=== PATIENT | male | born 1955 | race Caucasian/White ===

== ENCOUNTER 2017-05-06 11:35 | Observation (INO) | payer MEDICARE ==
[2017-05-06] MEDS ORDERED: SODIUM CHLORIDE 0.9% 500 ML IV ONE (11:43)
[2017-05-06] MEDS ORDERED: ONDANSETRON HCL IV 4 MG/2 ML VIAL IVP ONE (11:43)
--- NOTE | 2017-05-06 11:49 | Emergency Department Record ---
History of Present Illness - General Chief Complaint: Dizziness Stated Complaint: NAUSEA AND DIZZINESS Time Seen by Provider: 05/06/17 11:43 Source: Patient Mode of Arrival: Ambulatory Limitations: No limitations - History of Present Illness Initial Comments: 61 yo male presents with nausea, lightheadedness, and sweating that started about an hour ago feeling like he could pass out. He was working in his house changing a light and the symptoms started fairly quickly. NO chest pain. He feels like he could pass out. He has a history of CAD with stent but not chest heaviness or pain. He has vaguely not felt well for about 3 days but these symptoms came on abrupt just prior to arrival. No edema. No diarrhea. No other recent changes in his health. Cardiology is Dr Arce. No changes in vision , no weakness, no changes in speech, no changes in coordination. MD Complaint: Lightheadedness -: Hour(s) Timing: Sudden onset Description: Lightheadedness History of Same: No History of Trauma: No Improves With: Rest Worsens With: Movement, Position, Exertion Associated Symptoms: Denies other symptoms - Roma Coma Scale Eye Response: (4) Open spontaneously Motor Response: (6) Obeys commands Verbal Response: (5) Oriented Holly Total: 15 - Related Data Home Medications Medication Instructions Recorded Confirmed Last Taken Aspirin 325 mg PO DAILY 05/06/17 05/06/17 05/06/17 Atorvastatin Calcium [Lipitor] 40 mg PO QHS 05/06/17 05/06/17 05/05/17 Carvedilol [Coreg] 3.125 mg PO BID 05/06/17 05/06/17 05/06/17 Cetirizine HCl [Zyrtec] 10 mg PO DAILY 05/06/17 05/06/17 05/06/17 Fluoxetine HCl [Prozac] 20 mg PO DAILY 05/06/17 05/06/17 05/06/17 Insulin Aspart [Novolog] 22 unit SQ TIDAC 05/06/17 05/06/17 05/06/17 Insulin Glargine,Hum.rec.anlog 70 unit SQ QHS 05/06/17 05/06/17 05/05/17 [Lantus] Lisinopril [Zestril] 10 mg PO DAILY 05/06/17 05/06/17 05/05/17 Multivitamin/Iron/Folic Acid 1 tab PO DAILY 05/06/17 05/06/17 05/06/17 [Centrum] Tramadol HCl [Ultram] 50 mg PO Q6H 05/06/17 05/06/17 Unknown Allergies Allergy/AdvReac Type Severity Reaction Status Date / Time Penicillins Allergy HIVES Verified 05/06/17 11:49 Review of Systems Constitutional: Denies: Chills, Fever, Malaise, Weakness Eyes: Denies: Eye discharge, Eye pain, Photophobia, Vision change ENT: Reports: Congestion. Denies: Dental pain, Epistaxis, Throat pain Respiratory: Denies: Cough, Dyspnea, Hemoptysis, Stridor, Wheezes Cardiovascular: Denies: Arrhythmia, Chest pain, Edema, Palpitations, Syncope Endocrine: Reports: Fatigue. Denies: Polydipsia, Polyuria Gastrointestinal: Reports: Abdominal pain (few occasional cramps upper abdomen) , Nausea. Denies: Constipation, Diarrhea Genitourinary: Denies: Dysuria, Frequency, Hematuria Musculoskeletal: Denies: Arthralgia, Back pain, Myalgia, Neck pain Skin: Denies: Bruising, Change in color, Rash Neurological: Reports: Vertigo. Denies: Abnormal gait, Confusion, Headache, Numbness, Paresthesias, Seizure, Tingling, Tremors, Weakness Psychiatric: Denies: Anxiety Hematological/Lymphatic: Denies: Anemia, Blood Clots, Easy bleeding, Easy bruising, Swollen glands Physical Exam - General General Appearance: Alert, Oriented x3, Cooperative, No acute distress, Other ( sweating) Limitations: No limitations - Head Head exam: Normal inspection - Eye Eye exam: Normal appearance, PERRL, EOMI. negative: Conjunctival injection, Nystagmus, Periorbital swelling, Scleral icterus - ENT ENT exam: Normal exam, Mucous membranes moist Ear exam: Normal external inspection Nasal Exam: Normal inspection Mouth exam: Normal external inspection - Neck Neck exam: Normal inspection, Full ROM. negative: Tenderness - Respiratory Respiratory exam: Normal lung sounds bilaterally. negative: Accessory muscle use, Chest wall tenderness, Decreased breath sounds, Prolonged expiratory, Respiratory distress, Rhonchi, Stridor, Wheezes - Cardiovascular Cardiovascular Exam: Regular rate, Normal rhythm, Normal heart sounds Peripheral Pulses: 2+: Radial (R), Radial (L) - GI/Abdominal GI/Abdominal exam: Soft. negative: Distended, Guarding, Rebound, Rigid, Tenderness - Rectal Rectal exam: Deferred - exam: Deferred - Extremities Extremities exam: Normal inspection, Full ROM, Normal capillary refill. negative: Pedal edema, Tenderness - Back Back exam: Reports: Normal inspection, Full ROM. Denies: Muscle spasm, Rash noted, Tenderness - Neurological Neurological exam: Alert, CN II-XII intact, Normal gait, Oriented X3. negative : Altered, Motor sensory deficit - Psychiatric Psychiatric exam: Normal affect, Normal mood - Skin Skin exam: Diaphoretic, Intact, Normal color, Warm Course - Reevaluation(s) Reevaluation #1: EKG 11:58 NSR rate 79, intervals normal, axis normal, ST normal Accu check is 151 05/06/17 12:06 05/06/17 12:13 The CBC was reviewed. WBC is 13 05/06/17 12:27 The patient is getting improvement with rest, IVF and Zofran. The HCT scan was negative for acute changes 05/06/17 12:38 No acute changes on the CMP No acute changes on the Troponin I discussed further observation in the hospital given his episode of nearly passing out, sweating, nausea 05/06/17 13:19 The admission was discussed with Apoorva Murphy We discussed the symptoms of profuse diaphesis with lightheadedness The plan is to admit for serial enzymes, carotid dopplers, Monitor rhythm Medical Decision Making - Lab Data Result diagrams: 05/06/17 12:00 05/06/17 12:00 Disposition Disposition: Admit Clinical Impression: Diaphoresis, Near syncope Disposition: Still a Patient at [facility] Decision to Admit: Admit from ER Decision to Admit Date: 05/06/17 Decision to Admit Time: 12:41 Condition: (1) Good Time of Disposition: 12:41 Quality - Quality Measures Quality Measures: N/A - Blood Pressure Screening Does Patient Have Any of the Following: Active Dx of HTN Blood Pressure Classification: Pre-Hypertensive BP Reading Systolic Measurement: 123 Diastolic Measurement: 75 Screening for High Blood Pressure: Patient Exclusion, Hx of HTN [[id number]] Pre-Hypertensive Follow-up Interventions: Referral to alternative/primary care provider.
[2017-05-06 12:10] LABS: BASO % 0.8 % (0-6); EOS % 3.9 % (0-6); GRAN % 60.4 % (47-80); HEMATOCRIT 45.6 % (42.0-52.0); HEMOGLOBIN 15.8 gm/dl (14.0-18.0); MEAN CELL VOLUME 85.9 fl (81-97); MEAN CORPUSCULAR HEMOGLOBIN 29.8 pg (27-33); MEAN CORPUSCULAR HGB CONC 34.6 g/dl (32-36); MONO % 9.9 % (0-9); PLATELET COUNT 342 K/uL (130-400); RED BLOOD COUNT 5.31 M/uL (4.40-5.70); RED CELL DISTRIBUTION WIDTH 13.1 % (11.5-14.5)
[2017-05-06 12:21] LABS: INR 0.94; PARTIAL THROMBOPLASTIN TIME 24.7 SECONDS (24.5-39.1); PROTHROMBIN TIME (PATIENT) 10.2 SECONDS (9.5-12.1)
[2017-05-06 12:32] LABS: ALB/GLOB RATIO 1.1 (1.1-1.8); ALBUMIN 4.1 g/dL (4.0-5.0); ALKALINE PHOSPHATASE 101 U/L (40-129); ALT/SGPT 31 U/L (<41); AST/SGOT 26 U/L (10.0-50.0); BLOOD UREA NITROGEN 17 mg/dL (8-23); EST GLOMERULAR FILTRATION RATE > 60 mL/min; GLUCOSE,RANDOM 158 mg/dL (74-109); TOTAL PROTEIN 7.8 g/dL (6.6-8.7)
[2017-05-06] MEDS ORDERED: TRAMADOL HCL 50 MG TABLET PO PRN (13:18)
--- NOTE | 2017-05-06 13:40 | CT SCAN REPORT ---
EXAM: HEAD CT WITHOUT CONTRAST HISTORY: ACUTE VERTIGO, VOMITING, WEAKNESS BEGINNING THIS MORNING. TECHNIQUE: Contiguous axial images from the cerebral convexities to the foramen magnum were obtained without contrast. Comparison: None. Encounter: Initial. Hand dominance: Right. FINDINGS: Mild generalized atrophy of the brain. No acute intracranial hemorrhage, mass effect, or midline shift. no CT evidence of acute infarct. The ventricles, basal cisterns and sulci are within normal limits. The osseous structures, soft tissues and paranasal sinuses are unremarkable. IMPRESSION: NO ACUTE INTRACRANIAL PROCESS. JOB NUMBER: [id number] [facility]
[2017-05-06] MEDS: NOVOLOG FLEXPEN (INSULIN ASPART) 100 UNITS/ML SQ SCH (17:24)
[2017-05-06] MEDS ORDERED: LEVEMIR FLEXTOUCH 100 UNIT/ML INSULIN PEN SQ SCH (22:00)
[2017-05-06] MEDS ORDERED: ATORVASTATIN 20 MG TABLET PO SCH (22:00)
[2017-05-06] MEDS: CARVEDILOL 3.125 MG TABLET PO SCH (22:12)
--- NOTE | 2017-05-07 07:17 | US CAROTID DOPPLER REPORT ---
EXAM: BILATERAL CAROTID DOPPLER ULTRASOUND HISTORY: FEELING FAINT TODAY. TECHNIQUE: Transverse and longitudinal sonographic images of the cervical portions of the bilateral carotid arteries was performed. Comparison: None. FINDINGS: Imaging over the carotid arteries shows mild atheromatous plaque formation associated with the right carotid bifurcation and more moderate atheromatous plaque formation of the left carotid bifurcation. No visible areas of severe stenosis. Doppler and spectral analysis with color flow was utilized. Normal biphasic waveforms bilaterally. Velocities are as follows (in peak systolic velocity): Right ICA: 108 cm/s Right CCA: 91 cm/s Right ECA: 105 cm/s Right Vertebral Artery: 39 cm/s Right ICA/CCA ratio: 1.2 Left ICA: 63 cm/s Left CCA: 58 cm/s Left ECA: 150 cm/s Left Vertebral Artery: 55 cm/s Left ICA/CCA ratio: 1.1 IMPRESSION: FINDINGS CORRESPOND TO LESS THAN 50% LUMINAL NARROWING OF THE INTERNAL CAROTID ARTERIES BILATERALLY. MILD ATHEROMATOUS PLAQUE FORMATION ON THE RIGHT WITH MILD TO MODERATE ON THE LEFT. JOB NUMBER: [id number] [facility]
--- NOTE | 2017-05-07 09:23 | History & Physical ---
History of Present Illness - Date of Service Date of Service for History & Physical: 05/07/17 - History of Present Illness Admitting Diagnosis: Near syncope, diarphoresis History of Present Illness: Mr. Dixon is a 61 y/o male who presents with complaint of dizziness while putting up a light bulb at home yesterday. The patient says that he was on a ladder and suddenly became dizzy, feeling nauseated causing him to vomit several times and subsequently having sweating and diarrhea. He says that he felt better after vomiting. He has a history of DC with stent in 2013 but denies and chest pain, shortness of breath, headache or loss of consciounsess. He was able to drive into the hospital and did not experience any symptoms while driving. On arrival to hospital stroke/TIA workup was initiated which did not reveal an significant findings. Troponins have remained negative, ECG shows sinus rhythm and CT head w/o contrast is negative. The patient is admitted for observation on telemetry and completion of workup. Cardiology has been consulted from the ED for recommendations. Travel Screening - Travel/Exposure Within Last 30 Days Have you traveled within the last 30 days?: No - Travel/Exposure Within Last Year Have you traveled outside the [place] in the last year?: No - Additonal Travel Details Have you been exposed to anyone with a communicable illness?: No Review of Systems Constitutional: Denies: Chills, Fever, Malaise, Weakness Eyes: Denies: Eye discharge, Eye pain, Photophobia, Vision change ENT: Reports: Congestion. Denies: Dental pain, Epistaxis, Throat pain Respiratory: Denies: Cough, Dyspnea, Hemoptysis, Stridor, Wheezes Cardiovascular: Denies: Arrhythmia, Chest pain, Edema, Palpitations, Syncope Endocrine: Reports: Fatigue. Denies: Polydipsia, Polyuria Gastrointestinal: Reports: Abdominal pain (few occasional cramps upper abdomen) , Nausea. Denies: Constipation, Diarrhea Genitourinary: Denies: Dysuria, Frequency, Hematuria Musculoskeletal: Denies: Arthralgia, Back pain, Myalgia, Neck pain Skin: Denies: Bruising, Change in color, Rash Neurological: Reports: Vertigo. Denies: Abnormal gait, Confusion, Headache, Numbness, Paresthesias, Seizure, Tingling, Tremors, Weakness Psychiatric: Denies: Anxiety Hematological/Lymphatic: Denies: Anemia, Blood Clots, Easy bleeding, Easy bruising, Swollen glands Past Medical History - SOCIAL HISTORY Smoking Status: Former smoker Alcohol Use: None Drug Use: Occasional Drug Use Detail:: Marijuana - RESPIRATORY Hx Respiratory Disorders: Yes Hx Asthma: No Hx Bronchitis: No Hx COPD: No Hx Dyspnea: No Hx Pneumonia: No Hx Pulmonary Embolism: No Hx Sleep Apnea: Yes Hx Tuberculosis: No Hx of CPAP: Yes - CARDIOVASCULAR Hx Cardio Disorders: Yes Hx Abnormal EKG: Yes Hx Cardiac Cath: No Hx Chest Pain: Yes Hx CHF: No Hx Deep Vein Thrombosis: No Hx Edema: No Hx Heart Attack: Yes Hx Hypertension: Yes Hx Hypotension: No Hx Irregular Heartbeat: No Hx Palpitations: No Hx Pacemaker/Defib: No Hx Vascular Disease: No - NEURO Hx Neuro Disorders: No - GI Hx GI Disorders: Yes Hx Abdominal Pain: No Hx Celiac Disease: No Hx Crohn's Disease: No Hx Diverticulitis: No Hx GI Bleed: No Hx Reflux: No Hx Hepatitis/Jaundice: No Hx Hiatal Hernia: No Hx Irritable Bowel: No Hx Liver Disease: No Hx Nausea/Vomiting: Yes Hx Obstructive Bowel: No Hx Pancreatitis: No Hx Rectal Bleeding: No Hx Ulcer: Yes Hx Wt Loss/Wt Gain: No Hx of Polyps: No Comment:: hepatitis B - Hx Genitourinary Disorders: No - ENDOCRINE Hx Endocrine Disorders: Yes Hx Diabetes: Yes (type 2) Hx Thyroid Disease: No - MUSCULOSKELETAL Hx Musculoskeletal Disorders: Yes Hx Arthritis: Yes Hx Back Injury: No Hx Fibromyalgia: Yes Hx Gout: No Hx Musculoskeletal Disease: No Hx Osteoporosis: No - PSYCH Hx Psych Problems: No - HEMATOLOGY/ONCOLOGY Hx Hematology/Oncology Disorders: No Family Medical History Any Significant Family History?: No H&P Meds/Allergies - Allergies Allergies: Allergies Allergy/AdvReac Type Severity Reaction Status Date / Time Penicillins Allergy HIVES Verified 05/06/17 11:49 - Home Medications Home Medications Medication Instructions Recorded Confirmed Last Taken Aspirin 325 mg PO DAILY 05/06/17 05/06/17 05/06/17 Atorvastatin Calcium [Lipitor] 40 mg PO QHS 05/06/17 05/06/17 05/05/17 Carvedilol [Coreg] 3.125 mg PO BID 05/06/17 05/06/17 05/06/17 Cetirizine HCl [Zyrtec] 10 mg PO DAILY 05/06/17 05/06/17 05/06/17 Cholecalciferol (Vitamin D3) 4,000 units PO BID 05/06/17 05/06/17 05/06/17 [Vitamin D3] Fluoxetine HCl [Prozac] 20 mg PO DAILY 05/06/17 05/06/17 05/06/17 Insulin Aspart [Novolog] 22 unit SQ TIDAC 05/06/17 05/06/17 05/06/17 Insulin Glargine,Hum.rec.anlog 70 unit SQ QHS 05/06/17 05/06/17 05/05/17 [Lantus] Lisinopril [Zestril] 10 mg PO DAILY 05/06/17 05/06/17 05/05/17 Multivitamin/Iron/Folic Acid 1 tab PO DAILY 05/06/17 05/06/17 05/06/17 [Centrum] Tramadol HCl [Ultram] 50 mg PO Q6H PRN 05/06/17 05/06/17 Unknown - Active Medications Active Medications: Current Medications Aspirin (Ecotrin (Ec)) 325 mg PO DAILY [facility] Atorvastatin Calcium (Lipitor) 40 mg PO QHS [facility] Last Admin: 05/06/17 22:11 Dose: 40 mg Carvedilol (Coreg) 3.125 mg PO BID [facility] Last Admin: 05/06/17 22:12 Dose: 3.125 mg Fluoxetine HCl (Prozac) 20 mg PO DAILY [facility] Insulin Aspart (Novolog Flexpen) 22 unit SQ TIDINS [facility] Last Admin: 05/06/17 17:24 Dose: Not Given Insulin Detemir (Levemir Flextouch) 70 unit SQ QHS [facility] Last Admin: 05/06/17 22:13 Dose: 70 unit Lisinopril (Zestril) 10 mg PO DAILY [facility] Loratadine (Claritin) 10 mg PO DAILY [facility] Tramadol HCl (Ultram) 50 mg PO Q6H PRN PRN Reason: Pain - General Physical Exam - Vital Signs Vital Signs: Vital Signs - Last 24 Hrs Temp Pulse Pulse Pulse Resp BP BP 05/07/17 09:00 99.1 F 89 18 121/83 05/07/17 05:30 98.0 F 78 20 133/71 05/06/17 23:00 97.7 F 74 20 130/70 05/06/17 19:18 98.8 F 82 20 137/72 05/06/17 15:18 98.0 F 78 18 134/71 05/06/17 13:47 62 17 05/06/17 13:17 76 20 123/75 05/06/17 13:15 97.7 F 81 18 135/72 Pulse Ox 05/07/17 09:00 96 05/07/17 05:30 98 05/06/17 23:00 97 05/06/17 19:18 96 05/06/17 15:18 96 05/06/17 13:47 05/06/17 13:17 97 05/06/17 13:15 94 L - General General Appearance: Alert, Oriented x3, Cooperative, No acute distress, Other ( sweating) Limitations: No limitations - Head Head exam: Atraumatic, Normocephalic, Normal inspection - Eye Eye exam: Normal appearance, PERRL, EOMI. negative: Conjunctival injection, Nystagmus, Periorbital swelling, Scleral icterus - ENT ENT exam: Normal exam, Mucous membranes moist Ear exam: Normal external inspection Nasal Exam: Normal inspection Mouth exam: Normal external inspection - Neck Neck exam: Normal inspection, Full ROM. negative: Tenderness - Respiratory Respiratory exam: Normal lung sounds bilaterally. negative: Accessory muscle use, Chest wall tenderness, Decreased breath sounds, Prolonged expiratory, Respiratory distress, Rhonchi, Stridor, Wheezes - Cardiovascular Cardiovascular Exam: Regular rate, Normal rhythm, Normal heart sounds, Systolic murmur ( - murmur over right 2nd intercostal space. ) Peripheral Pulses: 2+: Radial (R), Radial (L), Dorsalis Pedis (R), Dorsalis Pedis (L) - GI/Abdominal GI/Abdominal exam: Soft. negative: Distended, Guarding, Rebound, Rigid, Tenderness - Rectal Rectal exam: Deferred - exam: Deferred - Extremities Extremities exam: Normal inspection, Full ROM, Normal capillary refill. negative: Pedal edema, Tenderness - Back Back exam: Reports: Normal inspection, Full ROM. Denies: Muscle spasm, Rash noted, Tenderness - Neurological Neurological exam: Alert, CN II-XII intact, Normal gait, Oriented X3. negative : Altered, Motor sensory deficit - Psychiatric Psychiatric exam: Normal affect, Normal mood - Skin Skin exam: Diaphoretic, Intact, Normal color, Warm Results - Labs Result Diagrams: 05/06/17 12:00 05/06/17 12:00 Labs Last 24 Hours: Laboratory Results - last 24 hr 05/06/17 05/06/17 05/07/17 16:47 19:55 00:04 POC Glucose 131 H 224 H Troponin T < 0.010 05/07/17 05/07/17 04:07 07:30 POC Glucose 178 H Troponin T < 0.010 VTE H&P Assessment - Risk for VTE Risk for VTE: Yes Risk Level: Moderate Risk Assessment Date: 05/07/17 Risk Assessment Time: 10:10 VTE Orders Placed or Will Be Placed: Yes Plan - Detailed Diagnosis and Plan (1) Near syncope Plan: - presented with complaint of dizziness and diaphoresis. Likely neurocardiogenic. - troponins negative x 2, no electrolyte abnormalities. Bolused 1 liter Nacl 0.9% - ECG - NSR, tele - no abnormal rhythms over night, carotid duplex - <50% obstruction bilaterally, CT head w/ contrast negative. - pending 2D echo which will likely be done outpatient tomorrow. Cardiology consult pending. Current Visit: Yes Status: Acute Base Code: R55 - SYNCOPE AND COLLAPSE (2) Diabetes mellitus type II, controlled Plan: - curently takes Metfromin 500mg ER QD at home. - glucose trend 131 --> 158 --> 178, Novolog 22 units TIDAC ordered - accuchecks QID dosing, diabetic diet ordered. - on ASA 81 mg, Linisopril 10mg QD, Atrovastatin 40mg QD Current Visit: Yes Status: Acute Base Code: E11.9 - TYPE 2 DIABETES MELLITUS WITHOUT COMPLICATIONS (3) History of coronary artery stent placement Plan: - EGK: NSR, troponins negative x 2. Tele monitoring - no abnormal runs. - resumed home doses of Coreg 3.125mg BID, ASA 81mg, Atorvastatin 40mg, Lisinopril 10mg QD - 2D echo as outpatient, Cardiology consult pending. Current Visit: Yes Status: Acute Base Code: Z95.5 - PRESENCE OF CORONARY ANGIOPLASTY IMPLANT AND GRAFT (4) DVT prophylaxis Plan: - Enoxaparin 40mg QD Current Visit: Yes Status: Acute Base Code: [id number] - (5) Full code status Plan: FULL CODE Current Visit: Yes Status: Acute Base Code: Z78.9 - OTHER SPECIFIED HEALTH STATUS - Disposition D/C today after consult with cardiology. 2D echo to be arranged outpatient.
[2017-05-07] MEDS ORDERED: FLUOXETINE HCL 20 MG CAPSULE PO SCH (10:00)
[2017-05-07] MEDS ORDERED: LORATADINE 10 MG TABLET PO SCH (10:00)
[2017-05-07] MEDS ORDERED: LISINOPRIL 10 MG TABLET PO SCH (10:00)
[2017-05-07] MEDS ORDERED: ASPIRIN 325 MG TAB ENTERIC-COATED PO SCH (10:00)
[2017-05-07] MEDS: CARVEDILOL 3.125 MG TABLET PO SCH (10:47)
[2017-05-07] MEDS: NOVOLOG FLEXPEN (INSULIN ASPART) 100 UNITS/ML SQ SCH (10:48)
[2017-05-07] MEDS ORDERED: FLU VAC QS 2017-18 (INPT, 6MO+) 60MCG/0.5ML IM ONE (10:49)
--- NOTE | 2017-05-07 10:56 | Discharge Summary ---
Providers Date of admission: 05/06/17 13:05 Attending physician: Gus Alonzo Primary care physician: ANIL RAO D.O. Physical Exam - Vital Signs Vital Signs: Vital Signs - Last 24 Hrs Temp Pulse Pulse Pulse Resp BP BP 05/07/17 09:00 99.1 F 89 18 121/83 05/07/17 05:30 98.0 F 78 20 133/71 05/06/17 23:00 97.7 F 74 20 130/70 05/06/17 19:18 98.8 F 82 20 137/72 05/06/17 15:18 98.0 F 78 18 134/71 05/06/17 13:47 62 17 05/06/17 13:17 76 20 123/75 05/06/17 13:15 97.7 F 81 18 135/72 Pulse Ox 05/07/17 09:00 96 05/07/17 05:30 98 05/06/17 23:00 97 05/06/17 19:18 96 05/06/17 15:18 96 05/06/17 13:47 05/06/17 13:17 97 05/06/17 13:15 94 L - General General Appearance: Alert, Oriented x3, Cooperative, No acute distress, Other ( sweating) Limitations: No limitations - Head Head exam: Atraumatic, Normocephalic, Normal inspection - Eye Eye exam: Normal appearance, PERRL, EOMI. negative: Conjunctival injection, Nystagmus, Periorbital swelling, Scleral icterus - ENT ENT exam: Normal exam, Mucous membranes moist Ear exam: Normal external inspection Nasal Exam: Normal inspection Mouth exam: Normal external inspection - Neck Neck exam: Normal inspection, Full ROM. negative: Tenderness - Respiratory Respiratory exam: Normal lung sounds bilaterally. negative: Accessory muscle use, Chest wall tenderness, Decreased breath sounds, Prolonged expiratory, Respiratory distress, Rhonchi, Stridor, Wheezes - Cardiovascular Cardiovascular Exam: Regular rate, Normal rhythm, Normal heart sounds, Systolic murmur ( - murmur over right 2nd intercostal space. ) Peripheral Pulses: 2+: Radial (R), Radial (L), Dorsalis Pedis (R), Dorsalis Pedis (L) - GI/Abdominal GI/Abdominal exam: Soft. negative: Distended, Guarding, Rebound, Rigid, Tenderness - Rectal Rectal exam: Deferred - exam: Deferred - Extremities Extremities exam: Normal inspection, Full ROM, Normal capillary refill. negative: Pedal edema, Tenderness - Back Back exam: Reports: Normal inspection, Full ROM. Denies: Muscle spasm, Rash noted, Tenderness - Neurological Neurological exam: Alert, CN II-XII intact, Normal gait, Oriented X3. negative : Altered, Motor sensory deficit - Psychiatric Psychiatric exam: Normal affect, Normal mood - Skin Skin exam: Diaphoretic, Intact, Normal color, Warm Hospitalization - Hospitalization Admission Diagnosis: Near syncope, diarphoresis - Problem List/Discharge Diagnosis (1) Near syncope Plan: - presented with complaint of dizziness and diaphoresis. Likely neurocardiogenic. - troponins negative x 2, no electrolyte abnormalities. Bolused 1 liter Nacl 0.9% - ECG - NSR, tele - no abnormal rhythms over night, carotid duplex - <50% obstruction bilaterally, CT head w/ contrast negative. - pending 2D echo which will likely be done outpatient tomorrow. Cardiology consult pending. Current Visit: Yes Status: Acute Base Code: R55 - SYNCOPE AND COLLAPSE (2) Diabetes mellitus type II, controlled Plan: - curently takes Metfromin 500mg ER QD at home. - glucose trend 131 --> 158 --> 178, Novolog 22 units TIDAC ordered - accuchecks QID dosing, diabetic diet ordered. - on ASA 81 mg, Linisopril 10mg QD, Atrovastatin 40mg QD Current Visit: Yes Status: Acute Base Code: E11.9 - TYPE 2 DIABETES MELLITUS WITHOUT COMPLICATIONS (3) History of coronary artery stent placement Plan: - EGK: NSR, troponins negative x 2. Tele monitoring - no abnormal runs. - resumed home doses of Coreg 3.125mg BID, ASA 81mg, Atorvastatin 40mg, Lisinopril 10mg QD - 2D echo as outpatient, Cardiology consult pending. Current Visit: Yes Status: Acute Base Code: Z95.5 - PRESENCE OF CORONARY ANGIOPLASTY IMPLANT AND GRAFT (4) DVT prophylaxis Plan: - Enoxaparin 40mg QD Current Visit: Yes Status: Acute Base Code: [id number] - (5) Full code status Plan: FULL CODE Current Visit: Yes Status: Acute Base Code: Z78.9 - OTHER SPECIFIED HEALTH STATUS - Disposition D/C today after consult with cardiology. 2D echo to be arranged outpatient. - Hospitalization Course Hospital Course: Mr. Dixon is a 61 y/o male who presents with complaint of dizziness while putting up a light bulb at home yesterday. The patient says that he was on a ladder and suddenly became dizzy, feeling nauseated causing him to vomit several times and subsequently having sweating and diarrhea. He says that he felt better after vomiting. He has a history of [place] with stent in 2013 but denies and chest pain, shortness of breath, headache or loss of consciounsess. He was able to drive into the hospital and did not experience any symptoms while driving. On arrival to hospital stroke/TIA workup was initiated which did not reveal an significant findings. Troponins have remained negative, ECG shows sinus rhythm and CT head w/o contrast is negative. The patient is admitted for observation on telemetry and completion of workup. Cardiology has been consulted and recommendation is for outpatient workup including stress echo. No further inpatient workup was required. Abnormal Labs: Abnormal Lab Results 05/06/17 05/07/17 05/07/17 Range/Units 16:47 00:04 07:30 POC Glucose 131 H 224 H 178 H (70-110) mg/dL Condition at Discharge: (1) Good Discharge Medications - Discharge Medications Home Medications: Ambulatory Orders Aspirin 325 mg PO DAILY 05/06/17 [Last Taken 05/06/17] Atorvastatin Calcium [Lipitor] 40 mg PO QHS 05/06/17 [Last Taken 05/05/17] Carvedilol [Coreg] 3.125 mg PO BID 05/06/17 [Last Taken 05/06/17] Cetirizine HCl [Zyrtec] 10 mg PO DAILY 05/06/17 [Last Taken 05/06/17] Cholecalciferol (Vitamin D3) [Vitamin D3] 4,000 units PO BID 05/06/17 [Last Taken 05/06/17] Fluoxetine HCl [Prozac] 20 mg PO DAILY 05/06/17 [Last Taken 05/06/17] Insulin Aspart [Novolog] 22 unit SQ TIDAC 05/06/17 [Last Taken 05/06/17] Insulin Glargine,Hum.rec.anlog [Lantus] 70 unit SQ QHS 05/06/17 [Last Taken 12/14] Lisinopril [Zestril] 10 mg PO DAILY 05/06/17 [Last Taken 05/05/17] Multivitamin/Iron/Folic Acid [Centrum] 1 tab PO DAILY 05/06/17 [Last Taken 05/06] Tramadol HCl [Ultram] 50 mg PO Q6H PRN 05/06/17 [Last Taken Unknown] Metformin ER HCl [Glucophage Xr] 500 mg PO DAILY 05/07/17 [Last Taken Unknown] Discharge Plan - Discharge Instructions Activity at Discharge: Resume Usual Activities As Tolerated Diet at Discharge: Diabetic Diet Quality Measures - Quality Measures Quality Measures: Coronary Artery Disease: Antiplatelet Therapy, Documentation of Current Medications in Medical Record, Screening for High Blood Pressure and F/U Documented - Current Medications Quality Measure: Measure #130: Documentation of Current Medications Documentation of Current Medications: <Current Medications Documented/Reviewed> [G8427] - Blood Pressure Screening Quality Measure: Screening for High Blood Pressure and Follow-Up Documented Does Patient Have Any of the Following: Active Dx of HTN Blood Pressure Classification: Pre-Hypertensive BP Reading Systolic Measurement: 123 Diastolic Measurement: 75 Screening for High Blood Pressure: Patient Exclusion, Hx of HTN [G9744] - Coronary Artery Disease Quality Measure: Measure #6: Coronary Artery Disease (CAD) Antiplatelet Therapy: <ASA or clopidogrel prescribed> [4086F] - Elder Abuse Suspicion Index EASI Reference Information: Toyin CANSECO, Kylie C, José Miguel D, Carl Monterroso.Development and validation of a tool to assist physicians identification of elder abuse: The Elder Abuse Suspicion Index (EASI ). Journal of Elder Abuse and Neglect, 2008; 20 (3): 276-300.
--- NOTE | 2017-05-07 15:24 | Medical Records Consult ---
DATE OF CONSULTATION: 05/07/2017 HISTORY OF PRESENT ILLNESS: Patient is a 61-year-old white male who was admitted to the emergency room yesterday after presenting with sudden onset of nausea, lightheadedness, and diaphoresis associated with vomiting x2. He was lightheaded. He did not actually pass out. At the time, he was cleaning, doing light housework. Denied any chest pain. He has had sinus congestion for the last several days with a lot of postnasal drip, which causes him to gag and become nauseated as a result. He has not felt well for the last 3 days. Denied any history of fever, chills, diarrhea, emesis, melena, or hematochezia. Since admission, EKGs have remained normal. Enzymes were negative for infarction. When examined, he says he is back to his normal self. He has been up to the bathroom and has had no further nausea or vomiting. He does have a history of known coronary artery disease, status post stenting to his LAD in 2013. Symptoms at that time consisted of substernal discomfort with radiation up into his jaw and down his left arm. None of that has been recently or occurred since his stenting. He had a nuclear stress test in 2013, which did not show any ischemia. He was hospitalized in May 2014 at [facility] with no signs of cardiac issue. He did undergo a transesophageal echo, which showed a probable bicuspid valve. He was last seen in our office in August 2015 for preoperative evaluation prior to gallbladder surgery. He underwent the gallbladder surgery without any problems His risk factors include diabetes mellitus, hypertension, dyslipidemia. PAST MEDICAL HISTORY: As outlined in the HPI. PAST SURGICAL HISTORY: Arm surgery, fistula repair, knee surgery, rhizotomy, tonsillectomy, recent cholecystectomy. CURRENT MEDICATIONS: Medications in our records include metformin 1000 mg b.i.d., aspirin 325 mg a day, insulin to scale, atorvastatin 40 mg a day, Farxiga 10 mg a day, carvedilol 3.125 mg b.i.d., Victoza injections, omeprazole 40 mg p.r.n., Cymbalta 60 mg a day. SOCIAL HISTORY: Former smoker. Does not exercise regularly. Has a high school diploma. . FAMILY HISTORY: Father and mother heart disease. Father has diabetes. There is heart disease in 1 brother, hepatitis in 1 sister. REVIEW OF SYSTEMS: A 10-point review of systems is reviewed. Pertinent positives included in HPI, otherwise negative. He does have a history of chronic diabetic skin lesions. PHYSICAL EXAMINATION: GENERAL: Obese white male sitting in bed, in no acute distress. VITAL SIGNS: Blood pressure 130/71. Pulse 90. Respiratory rate 20. Temp 98.5. HEENT: Normocephalic, atraumatic. Lids, conjunctivae, and sclerae are clear. Pupils equal, round, and reactive to light and accommodation. EOMs are intact. Buccal mucosa is pink and moist. Uvula midline upon retraction. NECK: Thick. There is no thyromegaly. There are bilateral carotid bruits versus transmitted heart murmur. CHEST: Increased A/P diameter. Clear to auscultation and percussion. CARDIOVASCULAR: Very distant heart sounds. S1 greatest at the apex. There is actually no 2nd heart sound. There is a grade 1 systolic ejection murmur heard best along the left sternal border, right 2nd intercostal space, transmitted slightly into the suprasternal notch. There are no diastolic murmurs, lists, gallops, or heaves. ABDOMEN: Soft. There are no masses or tenderness. GENITORECTAL: Deferred. EXTREMITIES: Pulses are 2+ over 4. There is no cyanosis, edema, or clubbing. NEUROLOGIC: Cranial nerves 2 through 12 intact. Sensation is intact. Patient is oriented to person, place, and time. INTEGUMENT: He has small skin ulcerations on his arms. LABORATORY DATA: EKG shows sinus rhythm, no acute changes. Troponins are normal. IMPRESSION: 1. Probable acute GI disorder, gastritis. Doubt this is cardiac related. 2. Atherosclerotic cardiovascular disease status post previous stenting to his LAD. 3. Dyslipidemia. 4. Insulin-dependent diabetes mellitus. 5. Hypertension. 6. GERD. 7. History of bicuspid aortic valve (had a transesophageal echo 2013 confirming the same). 8. Carotid bruits versus transmitted heart murmur. PLAN: From my perspective, he can be discharged to the hospital. He needs to have carotid ultrasound done as well as a cardiac stress test. Follow up with Dr. Arce, who sees him regularly in [facility]. I did advise him to return to the emergency room if his symptoms should recur. [facility] CENTERJose
== END 2017-05-07 12:35 | disposition home or self-care (01) ==
LOC: ER 11:35 → MEDSURG 13:05
PROVIDERS: ADMIT Internal Medicine; ATTEND Internal Medicine
DX: R55 Syncope and collapse (principal); I10 Essential (primary) hypertension; E78.5 Hyperlipidemia, unspecified; E11.9 Type 2 diabetes mellitus without complications; Z79.4 Long term (current) use of insulin; Z79.84 Long term (current) use of oral hypoglycemic drugs; Z87.891 Personal history of nicotine dependence; M79.7 Fibromyalgia; Z23 Encounter for immunization
CPT/HCPCS: 93041; 99285 ×2; 96374; 83735; 85025; 85730; 85610; 80053; 36416 ×2; 82948 ×2; 84484 ×2; 93880; 70450; 93005 ×2; 93010 ×2; 90686; G0378 ×2; J2405; J1815 ×2; 99220

== ENCOUNTER 2017-05-15 19:19 | Emergency (ER) | payer MEDICARE ==
[2017-05-15 19:54] LABS: BASO % 0.8 % (0-6); EOS % 5.8 % (0-6); GRAN % 62.5 % (47-80); HEMATOCRIT 44.7 % (42.0-52.0); HEMOGLOBIN 15.4 gm/dl (14.0-18.0); LYMPH % 22.9 % (16-45); MEAN CORPUSCULAR HEMOGLOBIN 29.6 pg (27-33); MEAN CORPUSCULAR HGB CONC 34.5 g/dl (32-36); MEAN PLATELET VOLUME 10.1 fl (7.4-10.4); PLATELET COUNT 326 K/uL (130-400); RED CELL DISTRIBUTION WIDTH 13.1 % (11.5-14.5); WHITE BLOOD COUNT W/O DIFF 12.2 K/uL (4.2-12.2)
[2017-05-15 20:09] LABS: BLOOD UREA NITROGEN 13 mg/dL (8-23); EST GLOMERULAR FILTRATION RATE > 60 mL/min; GLUCOSE,RANDOM 195 mg/dL (74-109)
--- NOTE | 2017-05-15 20:31 | Emergency Department Record ---
History of Present Illness - General Chief complaint: Hypogylcemia Stated complaint: TOOK OD OF INSULIN Time Seen by Provider: 05/15/17 19:43 Source: Patient Mode of Arrival: Ambulatory Limitations: No limitations - History of Present Illness Initial comments: pt accidentally gave himself 70 units of novalog instead of 20-30. Onset/Timin -: Minutes(s) Severity: Mild - Related Data Allergies Allergy/AdvReac Type Severity Reaction Status Date / Time Penicillins Allergy HIVES Verified 05/06/17 11:49 Travel Screening - Travel/Exposure Within Last 30 Days Have you traveled within the last 30 days?: No Review of Systems Reviewed: No additional complaints except as noted below Constitutional: Reports: As per HPI. Denies: Chills, Fever, Malaise, Night sweats, Weakness, Weight change Eyes: Reports: As per HPI. Denies: Eye discharge, Eye pain, Photophobia, Vision change ENT: Reports: As per HPI. Denies: Congestion, Dental pain, Ear pain, Epistaxis , Hearing loss, Throat pain Respiratory: Reports: As per HPI. Denies: Cough, Dyspnea, Hemoptysis, Stridor, Wheezes Cardiovascular: Reports: As per HPI. Denies: Arrhythmia, Chest pain, Dyspnea on exertion, Edema, Murmurs, Orthopnea, Palpitations, Paroxysmal nocturnal dyspnea, Rheumatic Fever, Syncope Endocrine: Reports: As per HPI. Denies: Fatigue, Heat or cold intolerance, Polydipsia, Polyuria Gastrointestinal: Reports: As per HPI. Denies: Abdominal pain, Constipation, Diarrhea, Hematemesis, Hematochezia, Melena, Nausea, Vomiting Genitourinary: Reports: As per HPI. Denies: Dysuria, Frequency, Hematuria, Incontinence, Retention, Testicular pain, Testicular mass, Urgency Musculoskeletal: Reports: As per HPI. Denies: Arthralgia, Back pain, Gout, Joint swelling, Myalgia, Neck pain Skin: Reports: As per HPI. Denies: Bruising, Change in color, Change in hair/ nails, Lesions, Pruritus, Rash Neurological: Reports: As per HPI. Denies: Abnormal gait, Confusion, Headache, Numbness, Paresthesias, Seizure, Tingling, Tremors, Vertigo, Weakness Psychiatric: Reports: As per HPI. Denies: Anxiety, Auditory hallucinations, Depression, Homicidal thoughts, Suicidal thoughts, Visual hallucinations Hematological/Lymphatic: Reports: As per HPI. Denies: Anemia, Blood Clots, Easy bleeding, Easy bruising, Swollen glands Past Medical History - SOCIAL HISTORY Smoking Status: Former smoker Alcohol Use: None Drug Use: None - RESPIRATORY Hx Respiratory Disorders: Yes Hx Asthma: No Hx Bronchitis: No Hx COPD: No Hx Dyspnea: No Hx Pneumonia: No Hx Pulmonary Embolism: No Hx Sleep Apnea: Yes Hx Tuberculosis: No Hx of CPAP: Yes - CARDIOVASCULAR Hx Cardio Disorders: Yes Hx Abnormal EKG: Yes Hx Cardiac Cath: No Hx Chest Pain: Yes Hx CHF: No Hx Deep Vein Thrombosis: No Hx Edema: No Hx Heart Attack: Yes Hx Hypertension: Yes Hx Hypotension: No Hx Irregular Heartbeat: No Hx Palpitations: No Hx Pacemaker/Defib: No Hx Vascular Disease: No - NEURO Hx Neuro Disorders: No - GI Hx GI Disorders: Yes Hx Abdominal Pain: No Hx Celiac Disease: No Hx Crohn's Disease: No Hx Diverticulitis: No Hx GI Bleed: No Hx Reflux: No Hx Hepatitis/Jaundice: No Hx Hiatal Hernia: No Hx Irritable Bowel: No Hx Liver Disease: No Hx Nausea/Vomiting: Yes Hx Obstructive Bowel: No Hx Pancreatitis: No Hx Rectal Bleeding: No Hx Ulcer: Yes Hx Wt Loss/Wt Gain: No Hx of Polyps: No Comment:: hepatitis B - Hx Genitourinary Disorders: No - ENDOCRINE Hx Endocrine Disorders: Yes Hx Diabetes: Yes (type 2) Hx Thyroid Disease: No - MUSCULOSKELETAL Hx Musculoskeletal Disorders: Yes Hx Arthritis: Yes Hx Back Injury: No Hx Fibromyalgia: Yes Hx Gout: No Hx Musculoskeletal Disease: No Hx Osteoporosis: No - PSYCH Hx Psych Problems: No - HEMATOLOGY/ONCOLOGY Hx Hematology/Oncology Disorders: No Family Medical History Any Significant Family History?: No Physical Exam - General General Appearance: Alert, Oriented x3, Cooperative, No acute distress - Head Head exam: Normal inspection - Eye Eye exam: Normal appearance, PERRL, EOMI Pupils: Normal accommodation - ENT ENT exam: Normal exam, Mucous membranes moist, Normal external ear exam, Normal orophraynx Ear exam: Normal external inspection. negative: External canal tenderness Nasal Exam: Normal inspection. negative: Discharge, Sinus tenderness Mouth exam: Normal external inspection, Tongue normal Teeth exam: Normal inspection. negative: Dental caries Throat exam: Normal inspection. negative: Tonsillar erythema, Tonsillar exudate - Neck Neck exam: Normal inspection, Full ROM. negative: Tenderness - Respiratory Respiratory exam: Normal lung sounds bilaterally. negative: Respiratory distress - Cardiovascular Cardiovascular Exam: Regular rate, Normal rhythm, Normal heart sounds - GI/Abdominal GI/Abdominal exam: Soft, Normal bowel sounds. negative: Tenderness - Rectal Rectal exam: Deferred - exam: Deferred - Extremities Extremities exam: Normal inspection, Full ROM, Normal capillary refill. negative: Tenderness - Back Back exam: Reports: Normal inspection, Full ROM. Denies: Muscle spasm, Rash noted, Tenderness - Neurological Neurological exam: Alert, CN II-XII intact, Normal gait, Oriented X3 - Psychiatric Psychiatric exam: Normal affect, Normal mood - Skin Skin exam: Dry, Intact, Normal color, Warm Course Vital Signs 05/15/17 19:52 Temperature 98.5 F Pulse Rate [ 74 Pulse Ox Probe] Respiratory 18 Rate Blood Pressure 132/71 [Left Arm] Pulse Ox 97 - Reevaluation(s) Reevaluation #1: 05/15/17 23:46 pt is doing much better. Medical Decision Making - Lab Data Result diagrams: 05/15/17 19:20 05/15/17 19:20 Lab Results 05/15/17 05/15/17 05/15/17 Range/Units 19:20 19:20 19:20 WBC 12.2 (4.2-12.2) K/uL RBC 5.20 (4.40-5.70) M/uL Hgb 15.4 (14.0-18.0) gm/dl Hct 44.7 (42.0-52.0) % MCV 86.0 (81-97) fl MCH 29.6 (27-33) pg MCHC 34.5 (32-36) g/dl RDW 13.1 (11.5-14.5) % Plt Count 326 (130-400) K/uL MPV 10.1 (7.4-10.4) fl Gran % 62.5 (47-80) % Lymphocytes % 22.9 (16-45) % Monocytes % 8.0 (0-9) % Eosinophils % 5.8 (0-6) % Basophils % 0.8 (0-6) % Sodium 141 (136-145) mmol/L Potassium 4.1 (3.4-4.5) mmol/L Chloride 101 (98-107) mmol/L Carbon Dioxide 27.0 (22-29) mmol/L Anion Gap 13.0 (7-16) BUN 13 (8-23) mg/dL Creatinine 1.0 (0.7-1.2) mg/dL Estimated GFR > 60 mL/min POC Glucose 194 H (70-110) mg/dL Random Glucose 195 H (74-109) mg/dL Calcium 9.5 (8.8-10.2) mg/dL 05/15/17 05/15/17 Range/Units 19:32 19:55 WBC (4.2-12.2) K/uL RBC (4.40-5.70) M/uL Hgb (14.0-18.0) gm/dl Hct (42.0-52.0) % MCV (81-97) fl MCH (27-33) pg MCHC (32-36) g/dl RDW (11.5-14.5) % Plt Count (130-400) K/uL MPV (7.4-10.4) fl Gran % (47-80) % Lymphocytes % (16-45) % Monocytes % (0-9) % Eosinophils % (0-6) % Basophils % (0-6) % Sodium (136-145) mmol/L Potassium (3.4-4.5) mmol/L Chloride (98-107) mmol/L Carbon Dioxide (22-29) mmol/L Anion Gap (7-16) BUN (8-23) mg/dL Creatinine (0.7-1.2) mg/dL Estimated GFR mL/min POC Glucose 176 H 157 H (70-110) mg/dL Random Glucose (74-109) mg/dL Calcium (8.8-10.2) mg/dL Disposition Disposition: Discharge Clinical Impression: Insulin overdose Qualifiers: Encounter type: initial encounter Injury intent: accidental or unintentional Qualified Code(s): T38.3X1A - Poisoning by insulin and oral hypoglycemic [ antidiabetic] drugs, accidental (unintentional), initial encounter Diabetes mellitus type II, controlled Qualifiers: Diabetes mellitus complication status: with hypoglycemia Diabetes mellitus m[facility] insulin use: with long term acute care registered nurse use Qualified Code(s): E11.649 - Type 2 diabetes mellitus with hypoglycemia without coma; Z79.4 - assistant terminal manager (current) use of insulin; Z79.4 - [facility] (current) use of insulin; Z79.4 - assistant terminal manager ( current) use of insulin; Z79.4 - assistant terminal manager (current) use of insulin Disposition: Home, Self-Care Condition: (1) Good Instructions: Hypoglycemia in a Person with Diabetes (ED) Additional Instructions: follow up with family doctor. return sooner if worse. monitor blood sugars closely Forms: Patient Portal Access Quality - Quality Measures Quality Measures: N/A - Blood Pressure Screening Does Patient Have Any of the Following: No Blood Pressure Classification: Hypertensive Reading Systolic Measurement: 140 Diastolic Measurement: 71 Screening for High Blood Pressure: < Pre-Hypertensive BP, F/U Documented > [ G8950] Pre-Hypertensive Follow-up Interventions: Follow-up with rescreen every year.
== END 2017-05-16 | disposition home or self-care (01) ==
LOC: ER 19:19
DX: T38.3X1A Poisoning by insulin and oral hypoglycemic [antidiabetic] drugs, accidental (unintentional), initial encounter (principal); R51 Headache; E11.649 Type 2 diabetes mellitus with hypoglycemia without coma; I10 Essential (primary) hypertension; I25.2 Old myocardial infarction; Z87.891 Personal history of nicotine dependence; Z79.4 Long term (current) use of insulin
CPT/HCPCS: 36416; 80048; 82948; 85025; 99283; 99284

== ENCOUNTER 2017-07-22 11:15 | Emergency (ER) | payer MEDICARE ==
[2017-07-22] MEDS ORDERED: SODIUM CHLORIDE 0.9% 500 ML IV ONE (12:03)
[2017-07-22 12:15] LABS: BASO % 1.1 % (0-6); EOS % 5.4 % (0-6); GRAN % 60.7 % (47-80); HEMOGLOBIN 15.8 gm/dl (14.0-18.0); LYMPH % 22.5 % (16-45); MEAN CORPUSCULAR HEMOGLOBIN 29.9 pg (27-33); MEAN CORPUSCULAR HGB CONC 34.3 g/dl (32-36); MONO % 10.3 % (0-9); PLATELET COUNT 283 K/uL (130-400); RED BLOOD COUNT 5.29 M/uL (4.40-5.70); RED CELL DISTRIBUTION WIDTH 13.4 % (11.5-14.5); WHITE BLOOD COUNT W/O DIFF 10.3 K/uL (4.2-12.2)
--- NOTE | 2017-07-22 12:47 | Emergency Department Record ---
History of Present Illness - General Chief Complaint: Abdominal Pain Stated Complaint: PANCREATITIS Time Seen by Provider: 07/22/17 11:51 Source: Patient Mode of Arrival: Ambulatory Limitations: No limitations - History of Present Illness Initial Comments: pt has been having abd pain and diarrhea for a few weeks. he went to his dr last week and had a ct which was basically neg and had labs. pt was called this a,m and told to go toer because he has pancreatitis. pt currently has no pain. he still has diarrhea but tells me he recently stopped ultram. his lipase was [address] MD Complaint: Abdominal pain, Other Onset/Timin -: Month(s) Location: [facility] Radiation: None Migration to: No migration Improves With: Nothing Worsens With: Nothing Associated Symptoms: Diarrhea - Related Data Allergies Allergy/AdvReac Type Severity Reaction Status Date / Time Penicillins Allergy HIVES Verified 05/06/17 11:49 Travel Screening - Travel/Exposure Within Last 30 Days Have you traveled within the last 30 days?: No Review of Systems Reviewed: No additional complaints except as noted below Constitutional: Reports: As per HPI. Denies: Chills, Fever, Malaise, Night sweats, Weakness, Weight change Eyes: Reports: As per HPI. Denies: Eye discharge, Eye pain, Photophobia, Vision change ENT: Reports: As per HPI. Denies: Congestion, Dental pain, Ear pain, Epistaxis , Hearing loss, Throat pain Respiratory: Reports: As per HPI. Denies: Cough, Dyspnea, Hemoptysis, Stridor, Wheezes Cardiovascular: Reports: As per HPI. Denies: Arrhythmia, Chest pain, Dyspnea on exertion, Edema, Murmurs, Orthopnea, Palpitations, Paroxysmal nocturnal dyspnea, Rheumatic Fever, Syncope Endocrine: Reports: As per HPI. Denies: Fatigue, Heat or cold intolerance, Polydipsia, Polyuria Gastrointestinal: Reports: As per HPI, Abdominal pain, Diarrhea, Nausea. Denies : Constipation, Hematemesis, Hematochezia, Melena, Vomiting Genitourinary: Reports: As per HPI. Denies: Dysuria, Frequency, Hematuria, Incontinence, Retention, Testicular pain, Testicular mass, Urgency Musculoskeletal: Reports: As per HPI. Denies: Arthralgia, Back pain, Gout, Joint swelling, Myalgia, Neck pain Skin: Reports: As per HPI. Denies: Bruising, Change in color, Change in hair/ nails, Lesions, Pruritus, Rash Neurological: Reports: As per HPI. Denies: Abnormal gait, Confusion, Headache, Numbness, Paresthesias, Seizure, Tingling, Tremors, Vertigo, Weakness Psychiatric: Reports: As per HPI. Denies: Anxiety, Auditory hallucinations, Depression, Homicidal thoughts, Suicidal thoughts, Visual hallucinations Hematological/Lymphatic: Reports: As per HPI. Denies: Anemia, Blood Clots, Easy bleeding, Easy bruising, Swollen glands Past Medical History - SOCIAL HISTORY Smoking Status: Former smoker Alcohol Use: None Drug Use: None - RESPIRATORY Hx Respiratory Disorders: Yes Hx Asthma: No Hx Bronchitis: No Hx COPD: No Hx Dyspnea: No Hx Pneumonia: No Hx Pulmonary Embolism: No Hx Sleep Apnea: Yes Hx Tuberculosis: No Hx of CPAP: Yes - CARDIOVASCULAR Hx Cardio Disorders: Yes Hx Abnormal EKG: Yes Hx Cardiac Cath: No Hx Chest Pain: Yes Hx CHF: No Hx Deep Vein Thrombosis: No Hx Edema: No Hx Heart Attack: Yes Hx Hypertension: Yes Hx Hypotension: No Hx Irregular Heartbeat: No Hx Palpitations: No Hx Pacemaker/Defib: No Hx Vascular Disease: No - NEURO Hx Neuro Disorders: No - GI Hx GI Disorders: Yes Hx Abdominal Pain: No Hx Celiac Disease: No Hx Crohn's Disease: No Hx Diverticulitis: No Hx GI Bleed: No Hx Reflux: No Hx Hepatitis/Jaundice: No Hx Hiatal Hernia: No Hx Irritable Bowel: No Hx Liver Disease: No Hx Nausea/Vomiting: Yes Hx Obstructive Bowel: No Hx Pancreatitis: No Hx Rectal Bleeding: No Hx Ulcer: Yes Hx Wt Loss/Wt Gain: No Hx of Polyps: No Comment:: hepatitis B - Hx Genitourinary Disorders: No - ENDOCRINE Hx Endocrine Disorders: Yes Hx Diabetes: Yes (type 2) Hx Thyroid Disease: No - MUSCULOSKELETAL Hx Musculoskeletal Disorders: Yes Hx Arthritis: Yes Hx Back Injury: No Hx Fibromyalgia: Yes Hx Gout: No Hx Musculoskeletal Disease: No Hx Osteoporosis: No - PSYCH Hx Psych Problems: No - HEMATOLOGY/ONCOLOGY Hx Hematology/Oncology Disorders: No Family Medical History Any Significant Family History?: No Physical Exam - General General Appearance: Alert, Oriented x3, Cooperative, No acute distress - Head Head exam: Normal inspection - Eye Eye exam: Normal appearance, PERRL, EOMI Pupils: Normal accommodation - ENT ENT exam: Normal exam, Mucous membranes moist, Normal external ear exam, Normal orophraynx Ear exam: Normal external inspection. negative: External canal tenderness Nasal Exam: Normal inspection. negative: Discharge, Sinus tenderness Mouth exam: Normal external inspection, Tongue normal Teeth exam: Normal inspection. negative: Dental caries Throat exam: Normal inspection. negative: Tonsillar erythema, Tonsillar exudate - Neck Neck exam: Normal inspection, Full ROM. negative: Tenderness - Respiratory Respiratory exam: Normal lung sounds bilaterally. negative: Respiratory distress - Cardiovascular Cardiovascular Exam: Regular rate, Normal rhythm, Normal heart sounds - GI/Abdominal GI/Abdominal exam: Soft, Normal bowel sounds. negative: Tenderness - Rectal Rectal exam: Deferred - exam: Deferred - Extremities Extremities exam: Normal inspection, Full ROM, Normal capillary refill. negative: Tenderness - Back Back exam: Reports: Normal inspection, Full ROM. Denies: Muscle spasm, Rash noted, Tenderness - Neurological Neurological exam: Alert, CN II-XII intact, Normal gait, Oriented X3 - Psychiatric Psychiatric exam: Normal affect, Normal mood - Skin Skin exam: Dry, Intact, Normal color, Warm Course Vital Signs 07/22/17 11:29 Temperature 98.6 F Pulse Rate 87 Respiratory 20 Rate Blood Pressure 144/80 Pulse Ox 95 Medical Decision Making - Lab Data Result diagrams: 07/22/17 11:40 07/22/17 11:40 Lab Results 07/22/17 Range/Units 11:40 WBC 10.3 (4.2-12.2) K/uL RBC 5.29 (4.40-5.70) M/uL Hgb 15.8 (14.0-18.0) gm/dl Hct 46.0 (42.0-52.0) % MCV 87.0 (81-97) fl MCH 29.9 (27-33) pg MCHC 34.3 (32-36) g/dl RDW 13.4 (11.5-14.5) % Plt Count 283 (130-400) K/uL MPV 11.0 H (7.4-10.4) fl Gran % 60.7 (47-80) % Lymphocytes % 22.5 (16-45) % Monocytes % 10.3 H (0-9) % Eosinophils % 5.4 (0-6) % Basophils % 1.1 (0-6) % Disposition Disposition: Discharge Clinical Impression: Pancreatitis Qualifiers: Chronicity: acute Pancreatitis type: other Acute pancreatitis complication: unspecified Qualified Code(s): K85.80 - Other acute pancreatitis without necrosis or infection Diarrhea Qualifiers: Diarrhea type: unspecified type Qualified Code(s): R19.7 - Diarrhea, unspecified Disposition: Home, Self-Care Condition: (1) Good Instructions: Pancreatitis (ED), Acute Diarrhea (ED) Additional Instructions: follow up with family doctor. return sooner if worse. push fluids Forms: Patient Portal Access Quality - Quality Measures Quality Measures: N/A - Blood Pressure Screening Does Patient Have Any of the Following: No Blood Pressure Classification: Pre-Hypertensive BP Reading Systolic Measurement: 144 Diastolic Measurement: 80 Screening for High Blood Pressure: < Pre-Hypertensive BP, F/U Documented > [ G8950] Pre-Hypertensive Follow-up Interventions: Follow-up with rescreen every year.
[2017-07-22 12:53] LABS: BLOOD UREA NITROGEN 17 mg/dL (8-23); CREATININE 1.1 mg/dL (0.7-1.2); EST GLOMERULAR FILTRATION RATE > 60 mL/min
[2017-07-22 12:54] LABS: TOTAL PROTEIN 7.7 g/dL (6.6-8.7)
[2017-07-22 12:56] LABS: GLUCOSE,RANDOM 296 mg/dL (74-109)
[2017-07-22 12:58] LABS: ALBUMIN 4.3 g/dL (4.0-5.0); ALKALINE PHOSPHATASE 101 U/L (40-129); ALT/SGPT 38 U/L (<41); AST/SGOT 24 U/L (10.0-50.0)
[2017-07-22 12:59] LABS: LIPASE 114 U/L (13-60)
[2017-07-22 13:04] LABS: BILIRUBIN,DIRECT < 0.2 mg/dL (0-0.3)
[2017-07-22 15:00] LABS: CRYPTOSPORIDIUM PARVUM ANTIGEN NOT DETECTED (NOT DETECT); GIARDIA LAMBLIA ANTIGEN NOT DETECTED (NOT DETECT)
[2017-07-22 15:05] LABS: ROTOVIRUS NOT DETECTED (NOT DETECT)
[2017-07-22 15:25] LABS: MOLECULAR C DIFF TOXIN SCREEN NOT DETECTED (NOT DETECT)
== END 2017-07-22 15:50 | disposition home or self-care (01) ==
LOC: ER 11:15
DX: K85.90 Acute pancreatitis without necrosis or infection, unspecified (principal); R19.7 Diarrhea, unspecified; I10 Essential (primary) hypertension; I25.2 Old myocardial infarction; Z79.4 Long term (current) use of insulin; Z87.891 Personal history of nicotine dependence
CPT/HCPCS: 80048; 80076; 82272; 83690; 85025; 87329; 87425; 87427; 87493; 89055; 96360; 99284

== ENCOUNTER 2018-05-27 14:22 | Emergency (ER) | payer MEDICARE ==
--- NOTE | 2018-05-27 14:48 | Emergency Department Record ---
History of Present Illness - General Chief Complaint: Ankle/Foot Injury Stated Complaint: LT FOOT PAIN Time Seen by Provider: 05/27/18 14:42 Source: Patient Mode of Arrival: Ambulatory Limitations: No limitations - History of Present Illness Initial Comments: The patient is here due to L foot pain for one day. He has had mild pain for a few days but today it became much worse. The pain is located over the arch of the foot. He stepped down to walk and felt a "pop" and severe pain only with walking. He denies any fall or trauma. Complaint: Foot injury Onset/Timin -: Hour(s) Place: Home Improves With: Nothing Worsens With: Nothing Context: Other Associated Symptoms: Snap/pop sensation, Unable to bear weight - Related Data Home Medications Medication Instructions Recorded Confirmed Last Taken Omeprazole 20 mg PO DAILY 05/27/18 05/27/18 05/27/18 Ranitidine HCl [Zantac] 150 mg PO DAILY 05/27/18 05/27/18 05/27/18 Allergies Allergy/AdvReac Type Severity Reaction Status Date / Time Penicillins Allergy HIVES Unverified 03/30/18 15:24 Travel Screening - Travel/Exposure Within Last 30 Days Have you traveled within the last 30 days?: No - Travel/Exposure Within Last Year Have you traveled outside the [place] in the last year?: No - Additonal Travel Details Have you been exposed to anyone with a communicable illness?: No - Travel Symptoms Symptom Screening: None Review of Systems Constitutional: Denies: Chills, Fever Eyes: Denies: Eye discharge ENT: Denies: Congestion Respiratory: Denies: Cough, Dyspnea Past Medical History - SOCIAL HISTORY Smoking Status: Former smoker Alcohol Use: None Drug Use: None - RESPIRATORY Hx Respiratory Disorders: Yes Hx Asthma: No Hx Bronchitis: No Hx COPD: No Hx Dyspnea: No Hx Pneumonia: No Hx Pulmonary Embolism: No Hx Sleep Apnea: Yes Hx Tuberculosis: No Hx of CPAP: Yes - CARDIOVASCULAR Hx Cardio Disorders: Yes Hx Abnormal EKG: Yes Hx Cardiac Cath: No Hx Chest Pain: Yes Hx CHF: No Hx Deep Vein Thrombosis: No Hx Edema: No Hx Heart Attack: Yes Hx Hypertension: Yes Hx Hypotension: No Hx Irregular Heartbeat: No Hx Palpitations: No Hx Pacemaker/Defib: No Hx Vascular Disease: No - NEURO Hx Neuro Disorders: Yes Hx Neuropathy: Yes - GI Hx GI Disorders: Yes Hx Abdominal Pain: No Hx Celiac Disease: No Hx Crohn's Disease: No Hx Diverticulitis: No Hx GI Bleed: No Hx Reflux: No Hx Hepatitis/Jaundice: No Hx Hiatal Hernia: No Hx Irritable Bowel: No Hx Liver Disease: No Hx Nausea/Vomiting: Yes Hx Obstructive Bowel: No Hx Pancreatitis: No Hx Rectal Bleeding: No Hx Ulcer: Yes Hx Wt Loss/Wt Gain: No Hx of Polyps: No Comment:: hepatitis B - Hx Genitourinary Disorders: No - ENDOCRINE Hx Endocrine Disorders: Yes Hx Diabetes: Yes (type 2) Hx Thyroid Disease: No - MUSCULOSKELETAL Hx Musculoskeletal Disorders: Yes Hx Arthritis: Yes Hx Back Injury: No Hx Fibromyalgia: Yes Hx Gout: No Hx Musculoskeletal Disease: No Hx Osteoporosis: No - PSYCH Hx Psych Problems: No - HEMATOLOGY/ONCOLOGY Hx Hematology/Oncology Disorders: No Family Medical History Any Significant Family History?: No Physical Exam - General General Appearance: Alert, Oriented x3, Cooperative, No acute distress - Head Head exam: Atraumatic - Extremities Extremities exam: Normal inspection, Full ROM, Normal capillary refill (DP pulses 1+ and equal bilaterally and PT pulses 2+ and equal bilaterally.), Tenderness (There is tenderness to palpation over the L foot arch. There is no swelling, bruising, or erythema appreciated.). negative: Joint swelling Image of Feet: 1 - Area of pain and tenderness. - Neurological Neurological exam: Alert. negative: Motor sensory deficit Course Vital Signs 05/27/18 14:24 Temperature 97.5 F L Pulse Rate 96 H Respiratory 18 Rate Blood Pressure 143/80 Pulse Ox 96 - Reevaluation(s) Reevaluation #1: I did discuss the neg xray with the patient and the need for F/U with his PCP. 05/27/18 15:10 Medical Decision Making - Data Complexity MDM Data: X-Ray Ordered and/or Reviewed - Radiology Data Radiology results: Report reviewed (L foot: neg for acute changes.) Disposition Disposition: Discharge Clinical Impression: Foot pain, left Disposition: Home, Self-Care Condition: (2) Stable Instructions: Arthralgia (ED) Additional Instructions: Please take your home pain medicines and ice the foot when possible. Wear the hard soled shoe for 1-2 weeks and see your family doctor if not better in 1 week. Forms: Patient Portal Access Time of Disposition: 15:31 Quality - Quality Measures Quality Measures: N/A - Blood Pressure Screening View Details: Yes Does Patient Have Any of the Following: No Blood Pressure Classification: Pre-Hypertensive BP Reading Systolic Measurement: 143 Diastolic Measurement: 80 Screening for High Blood Pressure: < Pre-Hypertensive BP, F/U Documented > [ G8950] Pre-Hypertensive Follow-up Interventions: Referral to alternative/primary care provider.
--- NOTE | 2018-05-29 08:11 | RADIOLOGY REPORT ---
EXAM: LEFT FOOT HISTORY: PL[place] FOOT PAIN WITH NO KNOWN INJURY. TECHNIQUE: Three views of the left foot were obtained. Comparison: None. FINDINGS: No acute fracture detected. Tarsal metatarsal alignment appears maintained. Very minimal plantar calcaneal enthesophyte. Mild first metatarsal phalangeal joint arthrosis. There are likely small cysts near the first digit interphalangeal joint. Posterior subtalar joint space is not well defined; this may either represent projectional artifact or underlying talocalcaneal coalition. This could be further assessed with CT or MRI as indicated clinically. IMPRESSION: NO ACUTE OSSEOUS FINDINGS. ADDITIONAL FINDINGS ABOVE. JOB NUMBER: [id number] MTDD
== END 2018-05-27 15:42 | disposition home or self-care (01) ==
LOC: ER 14:22
DX: M79.672 Pain in left foot (principal); I10 Essential (primary) hypertension; Z87.891 Personal history of nicotine dependence
CPT/HCPCS: 99283